=== PATIENT | male | born 1980 | race Caucasian/White ===

== ENCOUNTER 2018-07-29 09:43 | Emergency (ER) | payer MEDICAID, OTHER ==
[~2018-07-29] VITALS: Ht 193 cm; Wt 104.3 kg
--- NOTE | 2018-07-29 09:48 | NUR ---
ED Nurse Note: PT IN RESTROOM
--- NOTE | 2018-07-29 10:01 | NUR ---
ED Nurse Note: Pt came into the ER w/ complaints of left big toe turning purple. Pt stated that he broke that toe 3 days ago and was treated for it at [facility]. Pt was given a brace, but pt is currently not wearing it. Pt denies having pain at the moment. A + O x4. Ambulatory. Skin warm to touch.
[2018-07-29 10:02] VITALS: BP 140/95
--- NOTE | 2018-07-29 10:49 | NUR ---
ED Nurse Note: Boot and crutches provided for pt.
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
[2018-07-29 11:23] VITALS: BP 140/95
--- NOTE | 2018-07-29 11:23 | NUR ---
ED Nurse Note: When going to check up on pt, pt noted to be no where to be found. Notified ERMD. Left ER w/ all belongings.
== END 2018-07-29 11:25 | disposition left against medical advice (07) ==
LOC: EMR 10:37
DX: R58 Hemorrhage, not elsewhere classified (principal); R21 Rash and other nonspecific skin eruption; F19.10 Other psychoactive substance abuse, uncomplicated
CPT/HCPCS: 99281